=== PATIENT | male | born 1990 | race Caucasian/White ===

== ENCOUNTER 2016-11-24 18:46 | Emergency (ER) | payer OTHER ==
[~2016-11-24] VITALS: Ht 180.3 cm; Wt 81.8 kg
[2016-11-24 18:49] VITALS: TEMP 99.4
[2016-11-24 21:39] VITALS: BP 129/88; PULSE 100
== END 2016-11-24 21:52 | disposition home or self-care (01) ==
LOC: COL.ER 18:46
DX: S01.111A Laceration without foreign body of right eyelid and periocular area, initial encounter (principal); M25.552 Pain in left hip; V18.4XXA Pedal cycle driver injured in noncollision transport accident in traffic accident, initial encounter

== ENCOUNTER 2016-11-30 16:12 | Emergency (ER) | payer OTHER ==
[2016-11-30 16:15] VITALS: BP 125/87; PULSE 88; TEMP 97.5
== END 2016-11-30 16:30 | disposition home or self-care (01) ==
LOC: COL.ER 16:12
DX: Z48.02 Encounter for removal of sutures (principal)